=== PATIENT | female | born 1970 | race Caucasian/White ===

== ENCOUNTER → 2017-11-23 | Outpatient (REF) | payer OTHER ==
[2017-11-23 13:20] LABS: BASO % 0.4 % (0.0-1.0); EOS # 0.2 10^3/uL (0.0-0.50); EOS % 2.7 % (0.0-3.0); HEMOGLOBIN 13.7 g/dl (12.0-16.0); IMMATURE GRANULOCYTE % 0.3 % (0-3.0); LYMPH % 28.5 % (24.0-44.0); MEAN CORPUSCULAR HEMOGLOBIN 33.3 pg (27.0-33.0); MEAN CORPUSCULAR HGB CONC 35.1 g/dl (32.0-36.5); MEAN CORPUSCULAR VOLUME 94.9 fl (80.0-96.0); MONO # 0.6 10^3/uL (0.0-0.8); MONO % 8.5 % (0.0-5.0); NEUTROPHILS # 4.1 10^3/uL (1.8-7.7); NEUTROPHILS % 59.6 % (36.0-66.0); PLATELET COUNT, AUTOMATED 228 10^3/uL (150-450); RED BLOOD COUNT 4.11 10^6/uL (4.00-5.40); WHITE BLOOD COUNT 6.9 10^3/uL (4.0-10.0)
[2017-11-23 13:58] LABS: ALBUMIN 3.6 GM/DL (3.2-5.2); ALBUMIN/GLOBULIN RATIO 1.13 (1.00-1.93); ALKALINE PHOSPHATASE 50 U/L (45-117); ALT/SGPT 28 U/L (12-78); ANION GAP 8 MEQ/L (8-16); AST/SGOT 17 U/L (7-37); BILIRUBIN,TOTAL 0.7 MG/DL (0.2-1.0); BLOOD UREA NITROGEN 11 MG/DL (7-18); CALCIUM LEVEL 8.8 MG/DL (8.5-10.1); CARBON DIOXIDE LEVEL 26 MEQ/L (21-32); CHLORIDE LEVEL 107 MEQ/L (98-107); CREATININE FOR GFR 0.71 MG/DL (0.55-1.30); GLOMERULAR FILTRATION RATE > 60.0 (>58); GLUCOSE, FASTING 93 MG/DL (70-100); POTASSIUM SERUM 4.3 MEQ/L (3.5-5.1); SODIUM LEVEL 141 MEQ/L (136-145); TOTAL PROTEIN 6.8 GM/DL (6.4-8.2)
== END ==
LOC: M LABNEURO 11:32
DX: G56.03 Carpal tunnel syndrome, bilateral upper limbs (principal); G93.0 Cerebral cysts; R42 Dizziness and giddiness

== ENCOUNTER → 2019-05-10 | Outpatient (REF) ==
--- NOTE | 2019-05-10 13:31 | REP ---
It forearm: Two views. History: Degenerative disease. Findings: Two views of the right forearm demonstrate normal bones, joints, and soft tissues. No fracture, subluxation, erosive change or arthropathy is evident. Impression: Negative radiographs of the right forearm. Electronically Signed by August Jain MD 05/10/2019 01:23 P
--- NOTE | 2019-05-10 13:32 | REP ---
Right wrist series: Four views. History: Degenerative disease. Findings: Four views of the right wrist demonstrate normal bones, joints, and soft tissues. Joint spaces are preserved. No erosive changes seen. Impression: Negative radiographs of the right wrist. Electronically Signed by August Jain MD 05/10/2019 01:24 P
--- NOTE | 2019-05-10 13:44 | REP ---
LUMBAR SPINE SERIES: Three views. HISTORY: Degenerative disc disease. FINDINGS: Lumbar vertebral body heights are preserved. Alignment is normal. There is no evidence of spondylolysis or spondylolisthesis. There is sacralization of the L5 transverse processes bilaterally. Psoas margins are symmetric. Sacrum and SI joints are intact. There is a surgical clip in the right lower quadrant. On lateral radiographs there is degenerative narrowing of the discs at L2-3, L3-4, and L4-5 with early spurring. The exam is otherwise unremarkable. IMPRESSION: Sacralization of L5. Degenerative disc narrowing at L2-3 through L4-5. Minimal levoconvex curvature. Electronically Signed by August Jain MD 05/10/2019 01:44 P
== END ==
LOC: M SMT 12:59
PROVIDERS: ATTEND Internal Medicine
DX: M51.36 Other intervertebral disc degeneration, lumbar region (principal); Z02.71 Encounter for disability determination

== ENCOUNTER → 2020-06-19 | Outpatient (CLI) | payer OTHER | LOC: M WUC 16:46 | PROVIDERS: ATTEND Physician Assistant | DX: Z02.1 Encounter for pre-employment examination (principal) ==